=== PATIENT | male | born 1975 | race Caucasian/White ===

== ENCOUNTER 2024-07-27 17:34 | Emergency (ER) | payer OTHER ==
[~2024-07-27] VITALS: Ht 172.7 cm; Wt 65.8 kg
[~2024-07-27 17:34] MED LIST: Bactrim Ds Tab1 EACH PO; CRUTCH2 USE; CYCL10 PO; DIPH25 PO; EPIN.3I IM; HYDACE5 PO; HYDACE7.5 PO; IBUP800 PO; META800 PO; NAPR500 PO; NAPR550 PO; OXYACE5T PO; PENVK500 PO; PRED10 PO; PRED20 PO; RANI150 PO; RXHYDACE PO; TRAM50 PO
[2024-07-27 18:04] VITALS: BP 168/101
[2024-07-27 19:04] LABS: Influenza B, PCR NEGATIVE (NEGATIVE); Resp Syncytial Virus, PCR NEGATIVE (NEGATIVE); SARS-Cov-2 (COVID-19) PCR, MMC NEGATIVE (NEGATIVE)
[2024-07-27] MEDS ORDERED: Benzonatate 100 MG Cap PO ONE (20:55)
[2024-07-27] MEDS ORDERED: PredniSONE 20 MG Tab PO ONE (20:55)
[2024-07-27] MEDS ORDERED: Ipratropium/Albuterol SulF 2.5-0.5MG/3 ML Amp INH ONE (20:55)
[2024-07-27 21:36] LABS: Influenza A, PCR POSITIVE (NEGATIVE)
[2024-07-27] MEDS ORDERED: Prednisone20 MG PO (21:44)
[2024-07-27] MEDS ORDERED: BENZ100A PO (21:44)
[2024-07-27] MEDS ORDERED: RX Prepack Albuterol 1 PREPACK/6.7 GM INH UD ONE (21:45)
== END 2024-07-27 22:13 | disposition home or self-care (01) ==
LOC: ER 17:34
PROVIDERS: Student in an Organized Health Care Education/Training Program
DX: J10.1 Influenza due to other identified influenza virus with other respiratory manifestations (principal); F17.210 Nicotine dependence, cigarettes, uncomplicated
CPT/HCPCS: 0241U; 71046; 94640; 94664; 99284-25; A9270; J7512